=== PATIENT | male | born 1960 | race Hispanic/Latino ===

== ENCOUNTER 2019-06-08 05:15 | Emergency (ER) | payer SELFPAY ==
[2019-06-08] MEDS ORDERED: Morphine 4 MG/ML VIAL ONE (05:41)
[2019-06-08] MEDS ORDERED: Ondansetron PF 4 MG/2 ML Vial ONE ×2 (05:42→10:42)
[2019-06-08] MEDS ORDERED: Acetaminophen 500 MG TAB ONE (05:42)
[2019-06-08 05:55] LABS: Hemoglobin 13.9 g/dL (14.0-18.0); Mean Corpuscular HGB CONC 34.6 g/dL (32.0-36.0); Mean Corpuscular Hemoglobin 30.3 pg (27.0-31.0); Mean Corpuscular Volume 87.4 fL (78.0-98.0); RBC Distribution Width 11.9 % (11.5-14.5); Red Blood Cell (RBC) Count 4.61 mill/uL (4.70-6.10); White Blood Cell (WBC) Count 6.1 thou/uL (4.8-10.8)
[2019-06-08 06:05] LABS: #Lymphocytes 0.4 thou/uL (1.20-3.40); #Monocytes 0.1 thou/uL (0.11-0.59); #Neutrophils 5.6 thou/uL (1.40-6.50); %Eosinophils 0.6 % (0.0-10.0); %Lymphocytes 6.9 % (21.0-51.0); %Monocytes 0.8 % (0.0-10.0); %Neutrophils 91.8 % (42.0-75.0); Mean Platelet Volume 8.6 fL (7.4-10.4); Platelet Count 110 thou/uL (130-400); Platelet Morphology Comment Appears Decreased; RBC Morphology Normal
[2019-06-08 06:08] LABS: ALT (SGPT) 49 U/L (8-55); AST (SGOT) 32 U/L (5-34); Albumin 4.1 g/dL (3.5-5.0); Alkaline Phosphatase 60 U/L (40-110); Anion Gap 14 mmol/L (10-20); BUN (Urea Nitrogen) 12 mg/dL (8.4-25.7); Bilirubin, Total 1.9 mg/dL (0.2-1.2); Calc. Creatinine Clearance 0 mL/min (70-130); Calcium 8.5 mg/dL (7.8-10.44); Carbon Dioxide 22 mmol/L (22-29); Chloride 98 mmol/L (98-107); Estimated GFR-MDRD Greater than 90; Globulin 2.5 g/dL (2.4-3.5); Glucose 98 mg/dL (70-105); Lipase 5 U/L (8-78); Potassium 3.7 mmol/L (3.5-5.1); Protein, Total 6.6 g/dL (6.0-8.3); Sodium 130 mmol/L (136-145)
[2019-06-08] MEDS ORDERED: Piperacillin/Tazobactam 3.375 GM VIAL ONE ×2 (06:20→08:46)
--- NOTE | 2019-06-08 07:04 | CT ---
CT ABDOMEN AND PELVIS WITHOUT CONTRAST: Date: 06/08/2019 COMPARISON: None. HISTORY: Fever and right upper quadrant abdominal pain. TECHNIQUE: Multiple contiguous axial images were obtained in a CT of the abdomen and pelvis without contrast. Sa gittal and coronal reformats were performed. FINDINGS: The appendix is enlarged with surrounding stranding changes consistent with acute appendicitis. No fr ee air or free fluid seen in the abdomen or pelvis. The liver, gallbladder, kidneys, adrenal glands, spleen, and pancreas are unremarkable. The small bowel is normal in caliber. The colon is unremarkable. No abdominal or pelvic lymphadenopat hy seen. Atherosclerotic calcifications are seen in the aorta. There is a calcified granuloma in the right lung base. Degenerative changes are seen in the spine. Th e abdominal wall soft tissues are unremarkable. IMPRESSION: Acute appendicitis. Dr. Heredia notified of findings at 0622 hours on 06/08/2019. CODE CR.
[2019-06-08 07:21] LABS: Bilirubin Negative (Negative); Blood, Urine Negative (Negative); Clarity Clear (Clear); Glucose, Urine (Dipstick) Normal (Negative); Leukocyte Negative Leu/uL (Negative); Nitrite Negative (Negative); Protein, Urine (Dipstick) Negative (Neg-Trace); Urobilinogen Normal mg/dL (Less than 2)
--- NOTE | 2019-06-08 07:27 | RAD ---
Exam: Chest one view HISTORY:Cough. Fever. Comparison: None. FINDINGS: Cardiac silhouette: Normal Aorta: Unremarkable Pulmonary vessels: Normal Costophrenic angles: Clear LUNGS: No masses or consolidation. Pneumothorax: None Osseous abnormalities: None. Incompletely evaluated cervical fusion hardware. IMPRESSION: No acute cardiopulmonary process.
[2019-06-08] MEDS ORDERED: Bupivacaine 0.25% HCL 30 ML VIAL ONE ×2 (08:44→09:45)
[2019-06-08] MEDS ORDERED: Lidocaine 1% w/Epinephrine 1:100K 20 ML VIAL ONE ×2 (08:44→09:45)
[2019-06-08] MEDS ORDERED: Sodium Chloride 0.9% 100 ML ONE (08:46)
--- NOTE | 2019-06-08 09:09 | HP ---
CHIEF COMPLAINT: Abdominal pain. HISTORY OF PRESENT ILLNESS: Mr. Pierson is a 58-year-old man with onset of periumbilical pain last night. This gradually moved into the right lower quadrant. He developed nausea and fever, and came to the emergency room. He states that he tried to throw up, but was unable to. No diarrhea. No cough, sore throat, runny nose, or shortness of breath. No ill contacts. PAST MEDICAL HISTORY: Hypertension. PAST SURGICAL HISTORY: Cervical fusion and multiple lumbar surgeries. No abdominal surgeries. ALLERGIES: NO KNOWN DRUG ALLERGIES. OUTPATIENT MEDICATIONS: Losartan for blood pressure. SOCIAL HISTORY: The patient smokes a pack a day and drinks up to a six-pack of beer each day, but not every day. He denies any history of shakes or alcohol withdrawal. No illicit drug use. FAMILY HISTORY: None. REVIEW OF SYSTEMS: Ten system review of systems is negative, except per HPI. PHYSICAL EXAMINATION: VITAL SIGNS: The patient's temperature was 103 in the emergency room. Other vital signs are unremarkable. HEENT: Unremarkable. NECK: Supple without lymphadenopathy or thyroid nodules. HEART: Regular in its rate and rhythm without murmurs, rubs, or gallops. LUNGS: Clear to auscultation bilaterally. ABDOMEN: Soft and nondistended. No palpable masses or hernias. He is extremely tender to palpation in the right lower quadrant and has moderate tenderness to palpation in the right upper quadrant and left upper quadrant with some rebound tenderness. No rigidity, but he does have some voluntary guarding. EXTREMITIES: Warm well perfused without edema. NEURO: No focal deficits. PSYCHIATRIC: Alert, oriented, and appropriate. SKIN: No jaundice or icterus. No rash. LABORATORY DATA: White count is normal. Electrolytes are unremarkable. CT images are reviewed and I agree with the written report. The patient has a fecalith at the base of the appendix and the appendix is dilated with periappendiceal stranding. ASSESSMENT: Acute appendicitis. PLAN: Laparoscopic appendectomy. The patient has received Zosyn in the emergency room and we will continue his antibiotics perioperatively. The diagnosis and recommended treatment were discussed with the patient. Inherent risks of surgery were also discussed. These include, but are not limited to bleeding, infection, risks of anesthesia, damage to nearby structures including bowel, blood vessels and bladder, need for open surgery, and need for other procedures. He understands and accepts these risks and wishes to proceed. All of his questions were answered. Job ID: [id number]
[2019-06-08] MEDS ORDERED: Midazolam HCl 2 mg/2 ml Vial ONE (09:26)
[2019-06-08] MEDS ORDERED: Fentanyl 100 MCG/2 ML VIAL ONE ×3 (09:26→11:12)
[2019-06-08] MEDS ORDERED: PHENYLEPHRINE-NS 100 MCG/ML 10 ML SYRINGE ONE (10:42)
[2019-06-08] MEDS ORDERED: PROPOFOL 200 MG/20 ML VIAL ONE (10:42)
[2019-06-08] MEDS ORDERED: Lidocaine 1% PF 5 ML VIAL ONE (10:42)
[2019-06-08] MEDS ORDERED: Glycopyrrolate 0.2 MG/ML 5 ML SYRINGE ONE (10:42)
[2019-06-08] MEDS ORDERED: Succinylcholine Chloride 20 MG/ML 10 ml SYRINGE FS ONE (10:42)
[2019-06-08] MEDS ORDERED: Rocuronium Bromide 10 MG/ML (10ML VIAL) ONE (10:42)
[2019-06-08] MEDS ORDERED: EPHEDRINE 25 MG/5 ML SYRINGE ONE (10:42)
[2019-06-08] MEDS ORDERED: Promethazine HCl 25 MG/ML VIAL ONE (11:12)
[2019-06-08 12:32] LABS: Lactic Acid 1.8 mmol/L (0.5-2.2)
== END 2019-06-08 08:14 | disposition admitted as inpatient to this hospital (09) ==
LOC: ERS 05:15
DX: K35.80 Unspecified acute appendicitis (principal); R11.2 Nausea with vomiting, unspecified; I10 Essential (primary) hypertension; F17.210 Nicotine dependence, cigarettes, uncomplicated; Z79.899 Other long term (current) drug therapy
CPT/HCPCS: 36415; 71045; 74176; 80053; 81003; 83605; 83690; 85025; 87040; 87077; 87149; 87186; 87804; 88304; 96361; 96365; 96375; J2001; J2250; J2270; J2405; J2543; J2550; J2704; J3010; J3490; S0020